=== PATIENT | male | born 1985 ===

== ENCOUNTER 2025-06-04 20:19 | Outpatient (REF) | payer SELFPAY ==
[2025-06-04 20:53] LABS: Anion Gap 9.9 mmol/L (3-11); BUN 14 mg/dL (7-18); CO2 28.1 mmol/L (21.0-32.0); Calcium 8.5 mg/dL (8.5-10.1); Calculated LDL 100 mg/dL (<100); Chloride 105 mmol/L (98-107); Cholesterol 199 mg/dL (<200); Estimated GFR 120.20 (mL/min/1.73m2); Glucose 129 mg/dL (74-106); HDL Cholesterol 26 mg/dL (>or=40); Potassium 3.7 mmol/L (3.5-5.1); Sodium 143 mmol/L (136-145); Triglyceride 365 mg/dL (<150)
[2025-06-04 21:29] LABS: COMMENT (LAB VIEW ONLY) 164.81 mg/dL; Microalb ug/mg Crea 7.2 ug/mg Cr
== END 2025-06-04 20:20 | disposition home or self-care (01) ==
LOC: NCHCN 20:19
PROVIDERS: Visit Provider Family Medicine
DX: R73.03 Prediabetes (principal); I10 Essential (primary) hypertension; Z13.220 Encounter for screening for lipoid disorders
CPT/HCPCS: 80048; 80061; 82043; 82570